=== PATIENT | male | born 1970 | race Caucasian/White ===

== ENCOUNTER 2019-11-15 22:13 | Emergency (ER) | payer OTHER, SELFPAY ==
--- NOTE | ~2019-11-15 | US_ITS ---
EXAMINATION: US scrotum doppler DATE: 11/15/2019 23:44 INDICATION: Left testicular pain TECHNIQUE: Testicular sonogram utilizing grayscale and Doppler COMPARISON: None. FINDINGS: The right testis measures 4.4 x 2.6 x 3.3 cm. The left testis measures 4.1 x 2.3 x 3.3 cm. There is normal vascular flow to both testes. The right epididymis contains a 4 mm cyst or spermatoce le. The left epididymis contains a 5 mm cyst or spermatocele. There are small bilateral hydroceles. IMPRESSION: 1. No sonographic correlate for the patient's symptoms. 2. Small bilateral hydroceles. Reviewed, dictated and finalized at location A.
[2019-11-15 22:20] VITALS: BP 162/98; PULSE 76; RESP 20; TEMP 36.8; O2SAT 100
--- NOTE | 2019-11-15 22:40 | ED.MALEGU ---
HPI - Male Genitourinary General Chief complaint: Urogenital-Male Stated complaint: left testie pain Time Seen by Provider: 11/15/19 22:36 History of Present Illness HPI Narrative: Pain and swelling in the left testicle since Thursday. Mainly located at one point. worse with pressure. Improved with support. No dysuria, hematuria. He reports prior hernia repair on that side. Review of Systems Review of Systems: All systems reviewed & are unremarkable except as noted in HPI and below Constitutional: Constitutional: Denies fever(s) Cardiovascular: Cardiovascular: Denies chest pain Respiratory: Respiratory: Denies dyspnea Gastrointestinal: Gastrointestinal: Denies abdominal pain, Denies nausea and Denies vomiting Genitourinary: Genitourinary: Denies hematuria, Denies genital lesions, Denies dysuria, Denies penile discharge and Reports testicular pain [facility] Social History Social History (Updated 11/16/19 @ 00:16 by Jake Ren MD) Smoking status: Never smoker Exam Const: General: healthy appearing, no acute distress and alert Orientation/consciousness: patient oriented x3 HENMT: Head: normal to inspection Neck: Neck: normal visual inspection and no lymphadenopathy Chest: Chest palpation & inspection: no tenderness Resp: Effort & Inspection: normal respiratory effort Auscultation: clear to auscultation bilaterally, no rales, no rhonchi and no wheezes Cardio: Jugular venous distension: no JVD Rate: regular rate Rhythm: regular rhythm Heart sounds: no murmurs GI: Inspection: non-distended GI Palp: Yes Soft to palpation and No Tenderness to palpation present (GI) : Penis: Yes normal penis Testes: no testicular swelling and testicular tenderness on the left and localized Skin: General skin exam: normal color Neuro: General: patient oriented x3 and moves all extremities Speech: normal speech Extrem: General: no edema Psych: Appearance: well kempt Affect: normal affect Course Vital Signs Vital signs: Vital Signs Temperature 36.8 C 11/15/19 22:20 Pulse Rate 76 11/15/19 22:20 Respiratory Rate 11/15/19 22:20 Blood Pressure 162/98 H 11/15/19 22:20 Pulse Oximetry 100 11/15/19 22:20 Temperature 36.8 C 11/15/19 22:20 Pulse Rate 76 11/15/19 22:20 Respiratory Rate 20 11/15/19 22:20 Blood Pressure 162/98 H 11/15/19 22:20 Pulse Oximetry 100 11/15/19 22:20 MDM - Male Genitourinary Differential Diagnosis Differential diagnosis: Likely urinary tract infection, urethritis and other (epidydimitis) Medical Records Attestation: I reviewed the patient's medical records. Lab Data Attestation: I reviewed the patient's lab results. Labs: Lab Results 11/15/19 Range/Units 23:18 Urine Color Yellow (Yellow) Urine Appearance Clear (Clear) Urine pH 5.0 (5.0-9.0) Ur Specific [place] 1.025 (1.001-1.035) Urine Protein Negative (Negative) mg/dL Urine Glucose (UA) Negative (Negative) mg/dL Urine Ketones Negative (Negative) mg/dL Ur Blood (Man) 1+ H (Negative) Urine Nitrate Negative (Negative) Urine Bilirubin Negative (Negative) Urine Urobilinogen Negative (<2.0) mg/dL Leukocyte Esterase Rfl Negative (Negative) PETER/UL Urine RBC 0-2 (0-2) /hpf Urine WBC 0-3 /hpf Urine Mucus Rare /lpf Imaging Data Radiologist's impression: ITS Impressions Scrotum Ultrasound 11/15/19 23:52 IMPRESSION: 1. No sonographic correlate for the patient's symptoms. 2. Small bilateral hydroceles. Discharge Plan Discharge Clinical Impression: Left testicular pain Patient Disposition: Home, Self-Care Condition: Stable Instructions: Testicle Pain (ED) Follow-up/Referrals: PHYSICIAN,TWISTING OPERATOR [Primary Care Provider] -
[2019-11-15 23:41] LABS: Add Urine Microscopic? YES; Appearance Urine Clear (Clear); Bilirubin Urine Negative (Negative); Blood Urine 1+ (Negative); Color Urine Yellow (Yellow); Glucose Urine UA Negative (Negative); Ketones Urine Negative (Negative); Leukocyte Esterase Ur Negative LEU/UL (Negative); Mucus Urine Rare /lpf; Nitrate Urine Negative (Negative); Protein Urine Negative (Negative); RBC Urine 0-2 /hpf (0-2); Specific Grav Ur 1.025 (1.001-1.035); Urobilinogen Urine Negative mg/dL (<2.0); WBC Urine 0-3 /hpf
[2019-11-16] VITALS: BP 143/104; PULSE 66; RESP 20; O2SAT 98
== END 2019-11-16 00:30 | disposition home or self-care (01) ==
PROVIDERS: Emergency Provider Emergency Medicine
DX: N50.812 Left testicular pain (principal)
CPT/HCPCS: 76870; 81001; 93976; 99284